=== PATIENT | male | born 1950 | race Caucasian/White ===

== ENCOUNTER 2019-08-29 09:57 | Emergency (ER) | payer MEDICARE, OTHER ==
[~2019-08-29] VITALS: Ht 172.7 cm; Wt 89.0 kg
[~2019-08-29 09:57] MED LIST: AMOX-355 PO; HYDR-34 PO; LISI10TA2 PO; OXYC-12 PO; SIMV20TA3 PO
[2019-08-29] MEDS ORDERED: amLODIPine 5 MG (NORVASC) TAB PO ONE (10:45)
[2019-08-29] MEDS ORDERED: cloNIDine 0.1 MG (CATAPRES) TAB PO ONE (10:45)
--- NOTE | 2019-08-29 10:51 | ED General ---
General Chief Complaint: Cardiac/General Problems Stated Complaint: HIGH BP Nursing Triage Note: AMB TO ED FROM DR LAWSON OFFICE WAS THERE FOR HIS 6 MONTH CHECK UP AND CONCERN THAT HIS SYSTOLIC WAS IN THE 200 HAVING NO PAIN Nursing Sepsis Screen: No Definite Risk History of Present Illness Date Seen by Provider: Aug 29, 2019 Time Seen by Provider: 10:20 Initial Comments 69-year-old male sent in by his primary care provider because of elevated blood pressure reading. Patient has known established height tension. He is currently on 20 of lisinopril daily. Patient was at his PCP office for a six-month checkup and found his systolic was around 200. Patient is not having any symptoms. He is insistent to the ER due to his blood pressure reading. He did not have any nausea vomiting chest pain shortness of breath headaches vision changes or any other symptoms. Patient does state that he is having some problems with depression due to the loss of his couple years ago which he did CPR on her and she in his arms. He reports however that his primary provider is going to address that with him. He does not have any suicidal or homicidal ideations. Allergies and Home Medications Allergies Coded Allergies: No Known Drug Allergies (Unverified , 12/25/13) Home Medications Amoxicillin/Clavulanate K 1 Each Tablet, 1 EACH PO BID Prescribed by: EFRAIN MAZARIEGOS on 10/31/14 1117 Hydrocodone Bit/Acetaminophen 1 Ea Tablet, 1-2 EACH PO Q6H PRN for PAIN Prescribed by: EFRAIN MAZARIEGOS on 10/31/14 1117 Lisinopril 10 Mg Tablet, 10 MG PO DAILY, (Reported) Simvastatin 20 Mg Tablet, 20 MG PO HS, (Reported) Patient Home Medication List Home Medication List Reviewed: Yes Review of Systems Review of Systems Constitutional: no symptoms reported EENTM: no symptoms reported Respiratory: no symptoms reported; No short of breath Cardiovascular: No chest pain Gastrointestinal: no symptoms reported Genitourinary: no symptoms reported Musculoskeletal: no symptoms reported Skin: no symptoms reported Psychiatric/Neurological: Depressed Past Xjbtott-Lbhjxf-Bfhbnp Hx Past Med/Social Hx: Reviewed Nursing Past Med/Soc Hx Patient Social History Recent Foreign Travel: No Contact w/Someone Who Travel: No Recent Infectious Disease Expo: No Immunizations Up To Date Date of Influenza Vaccine: Jul 23, 2014 Family Medical History Arthritis 19 FATHER 19 MOTHER Cardiovascular disease 19 MOTHER Hypertension 19 MOTHER Parkinson's disease 19 FATHER No Family History of: AIDS Abdominal aortic aneurysm Alcoholism Aphasia Cancer of mouth Colon cancer Completed stroke Dementia Diabetes mellitus Kidney disease Myocardial infarction Prostate cancer Psychosocial problem Respiratory disorder Seizure disorder Thyroid disease Tuberculosis Physical Exam Vital Signs Vital Signs - First Documented 08/29/19 10:15 Temp 36.4 Pulse 62 Resp 18 B/P (MAP) 229/126 (160) Pulse Ox 99 O2 Delivery Room Air Capillary Refill : Less Than 3 Seconds Height, Weight, BMI Height: 5'7.00" Weight: 188lbs. oz. 85.098370ye; 29.00 BMI Method: General Appearance: No Apparent Distress, WD/WN HEENT: PERRL/EOMI Neck: Full Range of Motion, Supple Respiratory: Chest Non Tender, Lungs Clear, Normal Breath Sounds Cardiovascular: Regular Rate, Rhythm, No Edema Gastrointestinal: Non Tender, Soft Extremity: Normal Capillary Refill, Normal Inspection Neurologic/Psychiatric: Alert, Oriented x3, No Motor/Sensory Deficits, discharge specialist II- XII Norm as Tested, Other (mild depressed mood) Skin: Normal Color, Cool Progress/Results/Core Measures Suspected Sepsis Recent Fever Within 48 Hours: No Infection Criteria Present: None New/Unexplained Altered Menta: No Sepsis Screen: No Definite Risk SIRS Temperature: Pulse: 62 Respiratory Rate: 18 Blood Pressure 229 /126 Mean: 160 Results/Orders My Orders Orders - TOMMY MUNOZ DO Clonidine Tablet (Catapres Tablet) (08/29/19 10:45) Amlodipine Tablet (Norvasc Tablet) (08/29/19 10:45) Medications Given in ED Current Medications Medications Dose Ordered Sig/Pilo Route Start Time Stop Time Status Last Admin Dose Admin Amlodipine Besylate 5 mg ONCE ONCE PO 08/29/19 10:45 08/29/19 10:57 DC 08/29/19 10:48 5 MG Clonidine HCl 0.1 mg ONCE ONCE PO 08/29/19 10:45 08/29/19 10:57 DC 08/29/19 10:48 0.1 MG Vital Signs/I&O 08/29/19 10:15 Temp 36.4 Pulse 62 Resp 18 B/P (MAP) 229/126 (160) Pulse Ox 99 O2 Delivery Room Air Capillary Refill : Less Than 3 Seconds Blood Pressure Mean: 160 POS Progress Note : Time: 11:27 Progress Note Patient remained asymptomatic throughout his stay. Based on ER recommendations, and asymptomatic established hypertension no indications for labs or further evaluation. We will start him on amlodipine 5 mg daily in addition to his already prescribed 20 mg daily of lisinopril. Patient reports he has a appo intment with his primary care tomorrow. He should keep that appointment to help discuss his depression. I will provide him with a short prescription for amlodipine. Departure Impression Primary Impression: Benign hypertension Disposition: HOME, SELF-CARE Condition: Stable Departure-Patient Inst. Referrals: LUIS LAWSON DO (PCP/Family) Primary Care Physician Patient Instructions: Controlling Your Blood Pressure Through Lifestyle, High Blood Pressure in Adults, Medicines for High Blood Pressure, Low Salt Diet Scripts Amlodipine Besylate (Amlodipine Besylate) 5 Mg Tablet 5 MG PO DAILY for 14 Days, #14 TAB Prov: TOMMY MUNOZ DO 08/29/19 TOMMY MUNOZ DO Aug 29, 2019 10:51 POS
[2019-08-29] MEDS ORDERED: AMLO5TAB9 PO (11:30)
[2019-08-29 11:45] VITALS: BP 166/110
== END 2019-08-29 11:48 | disposition home or self-care (01) ==
LOC: EDUNIT# 09:57 → ER 09:58
DX: I10 Essential (primary) hypertension (principal); Z82.49 Family history of ischemic heart disease and other diseases of the circulatory system
CPT/HCPCS: 99283